=== PATIENT | male | born 1960 | race Caucasian/White ===

== ENCOUNTER 2018-12-08 17:50 | Emergency (ER) | payer OTHER | END 2018-12-08 21:20 | disposition home or self-care (01) | LOC: JER 17:50 ==

== ENCOUNTER 2020-06-30 12:12 | Inpatient (IN) | payer MEDICARE, OTHER ==
[2020-06-30 12:20] VITALS: BMI 29.6
[2020-06-30] MEDS ORDERED: DEXAMETHASONE SOD PHOSPHATE 10 MG/1 ML VIAL IVPUSH ONE (13:26)
[2020-06-30 13:42] LABS: BASO % 0.4 % (0-2.0); HEMATOCRIT 42.4 % (35.4-49); HEMOGLOBIN 14.4 GM/dL (11.7-16.9); LYMPH % 13.8 % (8-40); MCH 31.3 pg (25.7-33.7); MCHC 34.1 g/dl (32.0-35.9); MEAN CELL VOLUME 91.8 fl (80-96); MEAN PLT VOLUME 10.4 fl (7.5-11.1); MONO % 5.5 % (3.8-10.2); NEUT % 80.3 % (42.8-82.8); PLATELET COUNT 166 K/MM3 (134-434); RBC 4.62 M/mm3 (4.00-5.60); RDW 13.2 % (11.9-15.9); WHITE BLOOD COUNT 5.9 K/mm3 (4.0-10.0)
[2020-06-30] MEDS ORDERED: CEFTRIAXONE 1 GM in DEXTROSE 5%-WATER - 100 ML IVPB ONE (13:45)
[2020-06-30] MEDS ORDERED: AZITHROMYCIN IVPB 500 MG in DEXTROSE 5%-WATER - 250 ML IVPB ONE (13:45)
[2020-06-30] MEDS ORDERED: DEXAMETHASONE SOD PHOSPHATE 10 MG/1 ML VIAL ONE (13:51)
[2020-06-30] MEDS ORDERED: CEFTRIAXONE 1 GM/50 ML BAG ONE (13:52)
[2020-06-30] MEDS ORDERED: AZITHROMYCIN IVPB 500 MG/250 ML BAG IVPB ONE (13:52)
[2020-06-30 13:53] LABS: VENOUS BASE EXCESS 3.7 mmol/L (-2-2); VENOUS PCO2 41.7 mmHg (38-52); VENOUS PH 7.447 (7.310-7.410)
[2020-06-30] MEDS ORDERED: SODIUM CHLORIDE 0.9% 500 ML INFUS.BAG IV ONE (14:00)
[2020-06-30] MEDS ORDERED: ACETAMINOPHEN 1000 MG/100 ML BAG IVPB ONE (14:03)
[2020-06-30 14:06] LABS: CHLORIDE 100 mmol/L (98-107); SODIUM 129 mmol/L (136-145)
[2020-06-30] MEDS ORDERED: ACETAMINOPHEN INJECTION 100 ML IVPB ONE (14:06)
[2020-06-30 14:09] LABS: ALBUMIN 2.7 g/dl (3.4-5.0); BLOOD UREA NITROGEN 14.5 mg/dL (7-18); CO2 25 mmol/L (21-32); GLUCOSE,RANDOM 92 mg/dL (74-106)
[2020-06-30 14:12] LABS: CREATININE 0.7 mg/dL (0.55-1.3)
[2020-06-30 14:14] LABS: TOT PROT 7.8 g/dl (6.4-8.2)
[2020-06-30 14:15] LABS: ALK PHOS 64 U/L (45-117)
[2020-06-30 14:22] LABS: ANION GAP 5 MMOL/L (8-16); SGOT/AST 189 U/L (15-37)
[2020-06-30 14:36] LABS: ACTIVATED PTT 29.6 SECONDS (25.2-36.5); INR 1.09 (0.83-1.09); PROTHROMBIN TIME (PATIENT) 13.2 SEC (9.7-13.0)
[2020-06-30 14:47] LABS: LDH 1733 U/L (87-246)
[2020-06-30 15:48] LABS: EPI CELLS 4 /uL (0-25.1); HYALINE CASTS 0 /uL (0-3.1); PH,URINE 6.5 (5.0-8.0); URINE APPEARANCE CLEAR; URINE BACTERIA 11 /uL (0-1359); URINE BILIRUBIN NEGATIVE (NEGATIVE); URINE COLOR YELLOW; URINE GLUCOSE (UA) NEGATIVE (NEGATIVE); URINE KETONE NEGATIVE (NEGATIVE); URINE LEUK ESTERASE NEGATIVE (NEGATIVE); URINE NITRITE NEGATIVE (NEGATIVE); URINE PROTEIN 2+ (NEGATIVE); URINE RBC 8 /uL (0-23.9); URINE WBC 3 /uL (0-25.8)
[2020-06-30] MEDS ORDERED: guaiFENesin 200 MG/10 ML 10 ML UNIT-DOSE CUPS PO PRN (16:33)
[2020-06-30 16:47] LABS: BLOOD UREA NITROGEN 12.4 mg/dL (7-18); CALCIUM 7.6 mg/dL (8.5-10.1)
[2020-06-30 16:51] LABS: CREATININE 0.7 mg/dL (0.55-1.3)
[2020-06-30] MEDS: MONTELUKAST NA 10 MG TABLET PO SCH (21:08)
[2020-06-30] MEDS ORDERED: IBUPROFEN 600 MG TABLET (FP) PO ONE (21:39)
[2020-07-01] MEDS ORDERED: ACETAMINOPHEN 325 MG TABLET (FP) PO ONE (06:52)
[2020-07-01 08:30] LABS: BASO % 0.3 % (0-2.0); HEMATOCRIT 41.6 % (35.4-49); HEMOGLOBIN 14.2 GM/dL (11.7-16.9); LYMPH % 21.9 % (8-40); MCH 31.5 pg (25.7-33.7); MCHC 34.1 g/dl (32.0-35.9); MEAN CELL VOLUME 92.5 fl (80-96); MEAN PLT VOLUME 8.6 fl (7.5-11.1); MONO % 4.9 % (3.8-10.2); NEUT % 72.9 % (42.8-82.8); PLATELET COUNT 165 K/MM3 (134-434); RDW 12.8 % (11.9-15.9)
[2020-07-01 08:32] LABS: ALBUMIN 2.9 g/dl (3.4-5.0); BLOOD UREA NITROGEN 14.1 mg/dL (7-18); CALCIUM 8.1 mg/dL (8.5-10.1)
[2020-07-01 08:34] LABS: BILIRUBIN,TOTAL 0.6 mg/dL (0.2-1)
[2020-07-01 08:35] LABS: TOT PROT 6.6 g/dl (6.4-8.2)
[2020-07-01 08:36] LABS: CREATININE 0.6 mg/dL (0.55-1.3)
[2020-07-01] MEDS ORDERED: DEXTROSE 5%-WATER - 50 ML IVPB ONE (08:48)
[2020-07-01] MEDS ORDERED: cefTRIAXone SODIUM 1 GM VIAL ONE (08:48)
[2020-07-01] MEDS: CHOLECALCIFEROL (VIT D3) 1,000 UNIT (25 MCG) TABLET PO SCH (09:14)
[2020-07-01] MEDS: ASCORBIC ACID 500 MG TABLET (FP) PO SCH (09:14)
[2020-07-01] MEDS: ZINC SULFATE 220 MG CAPSULE (FP) PO SCH (09:14)
[2020-07-01] MEDS: ASPIRIN 81 MG CHEWABLE TABLETS PO SCH (09:14)
[2020-07-01] MEDS: TAMSULOSIN HCL 0.4 MG CAP PO SCH (09:14)
[2020-07-01] MEDS: DEXAMETHASONE SOD PHOSPHATE 10 MG/1 ML VIAL IVPUSH SCH (09:15)
[2020-07-01] MEDS: CEFTRIAXONE 1 GM in DEXTROSE 5%-WATER - 50 ML IVPB SCH (09:19)
[2020-07-01] MEDS: ENOXAPARIN NA (PORCINE) 40 MG/0.4 ML DISP.SYRIN SQ SCH (09:19)
[2020-07-01] MEDS: AZITHROMYCIN IVPB 500 MG/250 ML BAG IVPB SCH (10:25)
[2020-07-01] MEDS: NEBIVOLOL 5 MG TABLET (FP) PO SCH (11:57)
[2020-07-01] MEDS ORDERED: IBUPROFEN 200 MG TABLET PO PRN (14:52)
[2020-07-01] MEDS ORDERED: REMDESIVIR 200 MG in SODIUM CHLORIDE 210 ML IVPB ONE (15:53)
[2020-07-01] MEDS: MONTELUKAST NA 10 MG TABLET PO SCH (21:13)
[2020-07-02] MEDS: TAMSULOSIN HCL 0.4 MG CAP PO SCH (08:37)
[2020-07-02] MEDS ORDERED: DEXTROSE 5%-WATER - 50 ML IVPB ONE (08:58)
[2020-07-02] MEDS ORDERED: cefTRIAXone SODIUM 1 GM VIAL ONE (08:58)
[2020-07-02] MEDS: ZINC SULFATE 220 MG CAPSULE (FP) PO SCH (09:07)
[2020-07-02] MEDS: CEFTRIAXONE 1 GM in DEXTROSE 5%-WATER - 50 ML IVPB SCH (09:07)
[2020-07-02] MEDS: CHOLECALCIFEROL (VIT D3) 1,000 UNIT (25 MCG) TABLET PO SCH (09:07)
[2020-07-02] MEDS: ENOXAPARIN NA (PORCINE) 40 MG/0.4 ML DISP.SYRIN SQ SCH (09:07)
[2020-07-02] MEDS: ASPIRIN 81 MG CHEWABLE TABLETS PO SCH (09:07)
[2020-07-02] MEDS: ASCORBIC ACID 500 MG TABLET (FP) PO SCH (09:08)
[2020-07-02] MEDS: DEXAMETHASONE SOD PHOSPHATE 10 MG/1 ML VIAL IVPUSH SCH (09:08)
[2020-07-02] MEDS: NEBIVOLOL 5 MG TABLET (FP) PO SCH (09:10)
[2020-07-02] MEDS ORDERED: PT OWN MED DRAWER 7, Y5N ONE (09:10)
[2020-07-02] MEDS: AZITHROMYCIN IVPB 500 MG/250 ML BAG IVPB SCH (10:07)
[2020-07-02] MEDS ORDERED: ALBUTEROL SO4 HFA INHALER IH PRN (15:18)
[2020-07-02] MEDS: REMDESIVIR 100 MG in SODIUM CHLORIDE 230 ML IVPB SCH (16:44)
[2020-07-02] MEDS: IBUPROFEN 400 MG TABLET (FP) PO PRN (20:46)
[2020-07-02] MEDS: MONTELUKAST NA 10 MG TABLET PO SCH ×2 (20:47→21:07)
[2020-07-03] MEDS ORDERED: ACETAMINOPHEN 325 MG TABLET (FP) PO PRN (08:01)
[2020-07-03] MEDS ORDERED: PT OWN MED DRAWER 7, Y5N ONE (09:07)
[2020-07-03] MEDS ORDERED: DEXTROSE 5%-WATER - 50 ML IVPB ONE (09:07)
[2020-07-03] MEDS ORDERED: cefTRIAXone SODIUM 1 GM VIAL ONE (09:07)
[2020-07-03] MEDS: TAMSULOSIN HCL 0.4 MG CAP PO SCH (09:18)
[2020-07-03] MEDS: ASCORBIC ACID 500 MG TABLET (FP) PO SCH (09:18)
[2020-07-03] MEDS: ASPIRIN 81 MG CHEWABLE TABLETS PO SCH (09:19)
[2020-07-03] MEDS: NEBIVOLOL 5 MG TABLET (FP) PO SCH (09:19)
[2020-07-03] MEDS: ZINC SULFATE 220 MG CAPSULE (FP) PO SCH (09:19)
[2020-07-03] MEDS: DEXAMETHASONE SOD PHOSPHATE 10 MG/1 ML VIAL IVPUSH SCH (09:19)
[2020-07-03] MEDS: CHOLECALCIFEROL (VIT D3) 1,000 UNIT (25 MCG) TABLET PO SCH (09:19)
[2020-07-03] MEDS: ENOXAPARIN NA (PORCINE) 40 MG/0.4 ML DISP.SYRIN SQ SCH (09:20)
[2020-07-03] MEDS: CEFTRIAXONE 1 GM in DEXTROSE 5%-WATER - 50 ML IVPB SCH (09:20)
[2020-07-03] MEDS: AZITHROMYCIN IVPB 500 MG/250 ML BAG IVPB SCH (10:34)
[2020-07-03] MEDS: PANTOPRAZOLE 40 MG TABLET PO SCH (14:45)
[2020-07-03] MEDS: REMDESIVIR 100 MG in SODIUM CHLORIDE 230 ML IVPB SCH (16:48)
[2020-07-03 18:52] LABS: CALCIUM 8.3 mg/dL (8.5-10.1)
[2020-07-03 18:53] LABS: BLOOD UREA NITROGEN 26.7 mg/dL (7-18); MAGNESIUM 2.5 mg/dL (1.8-2.4)
[2020-07-03 18:57] LABS: CREATININE 0.9 mg/dL (0.55-1.3)
[2020-07-03 18:58] LABS: BILIRUBIN,TOTAL 0.4 mg/dL (0.2-1); TOT PROT 6.8 g/dl (6.4-8.2)
[2020-07-03 20:10] LABS: BASO % 0.1 % (0-2.0); EOS % 0.1 % (0-4.5); HEMOGLOBIN 13.1 GM/dL (11.7-16.9); LYMPH % 8.2 % (8-40); MCH 31.9 pg (25.7-33.7); MCHC 34.5 g/dl (32.0-35.9); MEAN CELL VOLUME 92.4 fl (80-96); MEAN PLT VOLUME 8.5 fl (7.5-11.1); MONO % 7.2 % (3.8-10.2); NEUT % 84.4 % (42.8-82.8); PLATELET COUNT 253 K/MM3 (134-434); RBC 4.12 M/mm3 (4.00-5.60); RDW 12.6 % (11.9-15.9); WHITE BLOOD COUNT 7.7 K/mm3 (4.0-10.0)
[2020-07-03] MEDS: IBUPROFEN 400 MG TABLET (FP) PO PRN (21:25)
[2020-07-03] MEDS: MONTELUKAST NA 10 MG TABLET PO SCH (21:26)
[2020-07-04] MEDS ORDERED: DEXTROSE 5%-WATER - 50 ML IVPB ONE (09:09)
[2020-07-04] MEDS ORDERED: cefTRIAXone SODIUM 1 GM VIAL ONE (09:09)
[2020-07-04 09:14] LABS: BASO % 0.3 % (0-2.0); HEMOGLOBIN 13.8 GM/dL (11.7-16.9); LYMPH % 17.8 % (8-40); MCH 31.8 pg (25.7-33.7); MCHC 34.5 g/dl (32.0-35.9); MEAN CELL VOLUME 92.3 fl (80-96); MEAN PLT VOLUME 8.3 fl (7.5-11.1); MONO % 5.6 % (3.8-10.2); NEUT % 76.3 % (42.8-82.8); PLATELET COUNT 269 K/MM3 (134-434); RBC 4.34 M/mm3 (4.00-5.60); RDW 12.8 % (11.9-15.9); WHITE BLOOD COUNT 8.4 K/mm3 (4.0-10.0)
[2020-07-04 09:34] LABS: BLOOD UREA NITROGEN 27.7 mg/dL (7-18); CALCIUM 8.1 mg/dL (8.5-10.1); MAGNESIUM 2.3 mg/dL (1.8-2.4)
[2020-07-04 09:38] LABS: CREATININE 0.8 mg/dL (0.55-1.3)
[2020-07-04 09:39] LABS: TOT PROT 6.6 g/dl (6.4-8.2)
[2020-07-04] MEDS: CHOLECALCIFEROL (VIT D3) 1,000 UNIT (25 MCG) TABLET PO SCH (09:54)
[2020-07-04] MEDS: ASPIRIN 81 MG CHEWABLE TABLETS PO SCH (09:54)
[2020-07-04] MEDS: ASCORBIC ACID 500 MG TABLET (FP) PO SCH (09:54)
[2020-07-04] MEDS: ZINC SULFATE 220 MG CAPSULE (FP) PO SCH (09:54)
[2020-07-04] MEDS: PANTOPRAZOLE 40 MG TABLET PO SCH (09:54)
[2020-07-04] MEDS: TAMSULOSIN HCL 0.4 MG CAP PO SCH (09:54)
[2020-07-04] MEDS: DEXAMETHASONE SOD PHOSPHATE 10 MG/1 ML VIAL IVPUSH SCH (09:59)
[2020-07-04] MEDS: AZITHROMYCIN IVPB 500 MG/250 ML BAG IVPB SCH (10:23)
[2020-07-04] MEDS: CEFTRIAXONE 1 GM in DEXTROSE 5%-WATER - 50 ML IVPB SCH (10:24)
[2020-07-04] MEDS: ENOXAPARIN NA (PORCINE) 40 MG/0.4 ML DISP.SYRIN SQ SCH (10:31)
[2020-07-04] MEDS ORDERED: PT OWN MED DRAWER 7, Y5N ONE (10:36)
[2020-07-04] MEDS: NEBIVOLOL 5 MG TABLET (FP) PO SCH (10:37)
[2020-07-04] MEDS: REMDESIVIR 100 MG in SODIUM CHLORIDE 230 ML IVPB SCH (17:42)
[2020-07-04] MEDS: MONTELUKAST NA 10 MG TABLET PO SCH (21:27)
[2020-07-04] MEDS: IBUPROFEN 400 MG TABLET (FP) PO PRN (21:27)
[2020-07-05 08:37] LABS: BASO % 0.2 % (0-2.0); HEMATOCRIT 39.9 % (35.4-49); HEMOGLOBIN 13.7 GM/dL (11.7-16.9); LYMPH % 19.3 % (8-40); MCH 31.5 pg (25.7-33.7); MCHC 34.4 g/dl (32.0-35.9); MEAN CELL VOLUME 91.4 fl (80-96); MEAN PLT VOLUME 8.3 fl (7.5-11.1); MONO % 10.1 % (3.8-10.2); NEUT % 70.4 % (42.8-82.8); PLATELET COUNT 292 K/MM3 (134-434); RBC 4.36 M/mm3 (4.00-5.60); RDW 12.6 % (11.9-15.9)
[2020-07-05] MEDS ORDERED: cefTRIAXone SODIUM 1 GM VIAL ONE (09:02)
[2020-07-05] MEDS ORDERED: PT OWN MED DRAWER 7, Y5N ONE (09:02)
[2020-07-05] MEDS ORDERED: DEXTROSE 5%-WATER - 50 ML IVPB ONE (09:03)
[2020-07-05] MEDS: CHOLECALCIFEROL (VIT D3) 1,000 UNIT (25 MCG) TABLET PO SCH (09:15)
[2020-07-05] MEDS: NEBIVOLOL 5 MG TABLET (FP) PO SCH (09:15)
[2020-07-05] MEDS: TAMSULOSIN HCL 0.4 MG CAP PO SCH (09:15)
[2020-07-05] MEDS: ASCORBIC ACID 500 MG TABLET (FP) PO SCH (09:15)
[2020-07-05] MEDS: ASPIRIN 81 MG CHEWABLE TABLETS PO SCH (09:15)
[2020-07-05] MEDS: ENOXAPARIN NA (PORCINE) 40 MG/0.4 ML DISP.SYRIN SQ SCH (09:16)
[2020-07-05] MEDS: PANTOPRAZOLE 40 MG TABLET PO SCH (09:16)
[2020-07-05] MEDS: ZINC SULFATE 220 MG CAPSULE (FP) PO SCH (09:16)
[2020-07-05] MEDS: AZITHROMYCIN IVPB 500 MG/250 ML BAG IVPB SCH (09:16)
[2020-07-05] MEDS: DEXAMETHASONE SOD PHOSPHATE 10 MG/1 ML VIAL IVPUSH SCH (09:16)
[2020-07-05] MEDS: CEFTRIAXONE 1 GM in DEXTROSE 5%-WATER - 50 ML IVPB SCH (09:16)
[2020-07-05 09:18] LABS: ALBUMIN 2.9 g/dl (3.4-5.0); BLOOD UREA NITROGEN 24.4 mg/dL (7-18); CALCIUM 8.2 mg/dL (8.5-10.1); MAGNESIUM 2.3 mg/dL (1.8-2.4)
[2020-07-05 09:21] LABS: CREATININE 0.7 mg/dL (0.55-1.3)
[2020-07-05 09:22] LABS: BILIRUBIN,TOTAL 0.8 mg/dL (0.2-1)
[2020-07-05 09:23] LABS: TOT PROT 6.6 g/dl (6.4-8.2)
[2020-07-05 15:16] VITALS: BP 140/84; PULSE 69; TEMP 97.8
[2020-07-05] MEDS: REMDESIVIR 100 MG in SODIUM CHLORIDE 230 ML IVPB SCH (16:30)
[2020-07-05 21:10] LABS: HEP B CORE AB, TOT Negative (Negative)
== END 2020-07-05 17:33 | disposition home or self-care (01) | DRG 177 ==
LOC: JER 12:12 → JERBED 15:57 → J8W 18:22
PROVIDERS: ATTEND Nurse Practitioner Acute Care
PROC: 8E0ZXY6 Isolation (ICD-10-PCS; 2020-06-30)
PROC: XW13325 Transfusion of Convalescent Plasma (Nonautologous) into Peripheral Vein, Percutaneous Approach, New Technology Group 5 (ICD-10-PCS; principal; 2020-07-01)
PROC: XW033E5 Introduction of Remdesivir Anti-infective into Peripheral Vein, Percutaneous Approach, New Technology Group 5 (ICD-10-PCS; 2020-07-01)
DX: U07.1 COVID-19 (principal); J12.89 Other viral pneumonia; J96.01 Acute respiratory failure with hypoxia; E87.3 Alkalosis; I10 Essential (primary) hypertension; J45.909 Unspecified asthma, uncomplicated; R11.2 Nausea with vomiting, unspecified; E78.5 Hyperlipidemia, unspecified; N40.0 Benign prostatic hyperplasia without lower urinary tract symptoms; R74.01 Elevation of levels of liver transaminase levels
CPT/HCPCS: 36415; 36430; 71045-TC-FY; 80048; 80053; 81003; 82550; 82553; 82728; 82803; 83605; 83615; 83735; 84484; 85025; 85379; 85610; 85730; 86140; 86704; 86706; 86707; 86708; 86709; 86850; 86900; 86901; 87040; 87086; 87340; 87522; 93005; 93010; 94761; 99291; C9399; C9803; J0131; J1100; P9017; U0003

== ENCOUNTER 2023-02-13 12:53 | Emergency (ER) | payer MEDICARE, OTHER ==
[2023-02-13 12:59] VITALS: RESP 18; TEMP 98.4; BMI 32.5
[2023-02-13] MEDS ORDERED: DIPHTH,PERTUSS(ACELL),TET 0.5 ML DISP.SYRIN IM ONE ×2 (13:24→13:30)
[2023-02-13] MEDS ORDERED: ACETAMINOPHEN 325 MG TABLET (FP) PO ONE (13:25)
[2023-02-13] MEDS ORDERED: ACETAMINOPHEN 325 MG TABLET (FP) ONE (13:30)
[2023-02-13 17:17] VITALS: BP 160/98; PULSE 68
== END 2023-02-13 17:59 | disposition home or self-care (01) ==
LOC: JER 12:53
PROC: 0HQ1XZZ Repair Face Skin, External Approach (ICD-10-PCS; principal; 2023-02-13)
PROC: 3E0234Z Introduction of Serum, Toxoid and Vaccine into Muscle, Percutaneous Approach (ICD-10-PCS; 2023-02-13)
DX: S01.81XA Laceration without foreign body of other part of head, initial encounter (principal); W11.XXXA Fall on and from ladder, initial encounter; Y92.031 Bathroom in apartment as the place of occurrence of the external cause
CPT/HCPCS: 12011-25; 70450-TC; 72125-TC; 73560-TC-LT-FY; 73560-TC-RT-FY; 73590-TC-LT-FY; 73590-TC-RT-FY; 90471; 90715; 99284-25